=== PATIENT | male | born 1960 | race Caucasian/White ===

== ENCOUNTER → 2016-07-24 | Outpatient (CLI) | payer BC, OTHER ==
[~2016-07-24] MED LIST: ASPI-435 PO; HYG25 PO; LPT40 PO; OMEG10002 PO; TPRSR/25 PO
[2016-07-24 12:55] LABS: BLOOD UREA NITROGEN 18 mg/dl (7-18); BUN/CREATININE RATIO 18.4 (10-20); CALCIUM 9.4 mg/dl (8.5-10.1); CARBON DIOXIDE 26 mmol/L (21-32); CHLORIDE 103 mmol/L (98-107); CREATININE 0.98 mg/dl (0.60-1.40); GLUCOSE 93 mg/dl (70-99); POTASSIUM 3.8 mmol/L (3.5-5.1); SODIUM 138 mmol/L (136-145)
[2016-07-24 12:58] LABS: CHOLESTEROL/HDL RATIO 4.5
== END | disposition home or self-care (01) ==
LOC: C.LABPVFM 07:35
PROVIDERS: ATTEND Internal Medicine Cardiovascular Disease
DX: I10 Essential (primary) hypertension (principal); E78.5 Hyperlipidemia, unspecified

== ENCOUNTER → 2017-01-17 | Outpatient (CLI) | payer BC ==
[2017-01-17 13:34] LABS: BLOOD UREA NITROGEN 21 mg/dl (7-18); BUN/CREATININE RATIO 21.1 (10-20); CALCIUM 9.5 mg/dl (8.5-10.1); CARBON DIOXIDE 28 mmol/L (21-32); CHLORIDE 106 mmol/L (98-107); CHOLESTEROL 176 mg/dl (0-200); GLUCOSE 85 mg/dl (70-99); POTASSIUM 3.8 mmol/L (3.5-5.1); SODIUM 140 mmol/L (136-145)
[2017-01-17 13:37] LABS: CHOLESTEROL/HDL RATIO 4.2; HDL CHOLESTEROL 42 mg/dl; LDL CHOLESTEROL CALCULATED 112 mg/dl; TRIGLYCERIDES 112 mg/dl (0-150); VERY LOW DENSITY LIPOPROT CALC 22 mg/dl
== END | disposition home or self-care (01) ==
LOC: C.LABPVFM 08:24
PROVIDERS: ATTEND Nurse Practitioner
DX: E78.5 Hyperlipidemia, unspecified (principal); I10 Essential (primary) hypertension

== ENCOUNTER → 2017-09-03 | Outpatient (CLI) | payer BC | END | disposition home or self-care (01) | LOC: C.LABPVFM 07:50 | PROVIDERS: ATTEND Internal Medicine Cardiovascular Disease | DX: E78.5 Hyperlipidemia, unspecified (principal) ==

== ENCOUNTER 2021-01-19 16:15 | Observation (INO) ==
--- NOTE | 2021-01-19 16:38 | Emergency Department Note ---
History of Present Illness General Chief complaint: Infection, Wound Stated complaint: STICHES REMOVED ON LEFT LEG - WOUND IS INFECTED Time Seen by Provider: 01/19/21 16:27 Source: patient History of Present Illness Provider complaint: Leg pain Onset (ago): week(s) Location: lower extremity and left Pain Consistency: + constant Maximum Pain Intensity: 5 Quality: + other (Stinging) Relieved By: + none Associated symptoms: no chest pain, no cough, no fever/chills, no malaise, no nausea/vomiting and no shortness of breath This is a 61-year-old male who presents with pain to his left leg. He has had it since December 2 days after he fell and cut himself on a ladder. He states that the wound was repaired and the patient was on antibiotics for a week. Subsequently he had the sutures removed January 14 and was placed on 2 different antibiotics for a wound infection. He is presenting today because he is concerned that the antibiotics are not helping. He complains of a stinging pain to his left leg. No associated fever or vomiting or malaise. No alleviating factors. He has noticed that he developed little pustular lesions on the right leg as well as surrounding the wound. He has also noticed some yellowish and clear discharge from the wound itself. He does state that [place] the [place] and they presume the posterior lesions were from bug bites. He did scratch them initially. He denies any chest pain, shortness of breath, abdominal pain, diarrhea or urinary symptoms. Home Medications Medication Instructions Recorded Confirmed Type omega-3 fatty acids 1,000 mg 1,000 mg PO DAILY 02/02/19 01/19/21 History capsule azelastine 205.5 mcg (0.15 %) 2 sprays INTNAS BID PRN 02/19/19 01/19/21 History nasal spray aspirin 81 mg tablet,delayed 81 mg PO DAILY tab 02/23/19 01/19/21 History release ketoconazole 2 % topical cream 1 appln TOP BID #30 gm 06/24/19 01/19/21 Rx triamcinolone acetonide 0.1 % 1 appln TOP BID #30 gm 06/24/19 01/19/21 Rx topical cream metoprolol succinate 25 mg 12.5 mg PO DAILY #45 tab 04/10/20 01/19/21 Rx tablet,extended release 24 hr tadalafil 10 mg tablet 10 mg PO .COMPLEX PRN #5 tab 07/09/20 01/19/21 Rx escitalopram oxalate 20 mg tablet 20 mg PO DAILY #30 tab 08/28/20 01/19/21 Rx albuterol sulfate 90 mcg/actuation 2 inh INH Q6H PRN #18 gm 09/07/20 01/19/21 Rx aerosol inhaler amoxicillin 875 mg-potassium 1 tab PO BID #14 tab 01/14/21 01/19/21 Rx clavulanate 125 mg tablet sulfamethoxazole 800 1 tab PO BID #14 tab 01/14/21 01/19/21 Rx mg-trimethoprim 160 mg tablet atorvastatin 80 mg PO QPM 01/19/21 01/19/21 History chlorthalidone 25 mg PO QAM 01/19/21 01/19/21 History diclofenac sodium 50 mg PO BID 01/19/21 01/19/21 History trazodone 50 mg PO HS 01/19/21 01/19/21 History Allergies Allergy/AdvReac Type Severity Reaction Status Date / Time Pollen Allergy Intermediate SNEEZING, Uncoded 01/19/21 17:44 CONGESTION Past Med/Surg History Medical History (Updated 01/19/21 @ 19:54 by Jono Vallejo MD) Cervical radicular pain Cervical spine pain Coronary artery fistula Eczema Enlarged thyroid Surgical History H/O hernia repair H/O shoulder surgery Bilateral History of cataract surgery Family History Aunt Colorectal cancer Uncle Colorectal cancer Father Myocardial infarction Other Cancer Diabetes Stroke Denies family history of Ovarian cancer Prostate cancer Breast cancer Social History Smoking Status: Current every day smoker Tobacco Type: Cigarettes Age Started Using Tobacco: 11; packs per day: 1; Years Smoked: 48; Cigarettes Per Day: 20; Second Hand Exposure: Yes; Hx Alcohol Use: Yes Alcohol type: beer Hx Substance Use: No Preferred Language: Taiwanese Visual Impairment: No Limitations Hearing Ability: Normal marital status: Current Living Situation: Spouse current occupational status: retired Feels Safe at Home: Yes caffeine: Yes Dental Care, Regularly: No Physical Activity Frequency: Daily Seatbelt Use: sometimes Sunscreen Use: No Review of Systems See HPI for pertinent positives & negatives. and A total of 10 systems reviewed and were otherwise negative Physical Exam Vital Signs Vital Signs - 24 hr 01/19/21 16:22 01/19/21 19:25 Temperature 36.7 C 37.1 C Temperature Source Oral Oral Pulse Rate 88 Respiratory Rate 20 20 Respiratory Effort / Characteristics Non-Labored Non-Labored Spontaneous Respiratory Depth Normal Normal Respiratory Pattern Regular Blood Pressure 152/87 H Blood Pressure [Left Arm] 164/79 H Blood Pressure Mean 108 Blood Pressure Mean [Left Arm] 107 Blood Pressure Position [Left Arm] Lying Pulse Oximetry 96 98 Oxygen Delivery Method Room Air Room Air Sepsis Recent Fever Within 48 Hours No Sepsis New/Unexplained Change in Mental Status N/A Sepsis Action Taken by Nursing No Action Required Constitutional: Vital signs reviewed. Eyes: Pupils are equal round reactive to light. Conjunctiva are noninjected. ENT: Pharynx is clear without erythema or exudate. Mucous membranes are moist. Neck supple without meningeal signs. Respiratory: Clear to auscultation bilaterally. Breath sounds are equal bilaterally. Cardiovascular: Regular rate and rhythm. No rubs or gallops. GI: Soft, nondistended and nontender. Bowel sounds are present. Musculoskeletal: Large wound to the left medial calf with serous drainage along the margins. No purulence is noted. There is surrounding erythema extending approximately 2 to 3 cm around the wound. There is no palpable mass or fluctuance or induration. There are small papular lesions surrounding the wound as well as on the right calf that are excoriated. No crepitus to either leg. Integumentary: No cyanosis. or jaundice. Neurological: The patient is awake and alert. No focal deficits. Psychiatric: Normal affect. Not anxious appearing. Course Administered Medications Discontinued Medications Vancomycin HCl 2,500 mg/ (Sodium Chloride) 550 mls @ 200 mls/hr IV NOW ONE Stop: 01/19/21 19:46 Last Admin: 01/19/21 17:48 Dose: 200 mls/hr Documented by: [id number] Ceftriaxone Sodium (Rocephin) 2,000 mg in 70 mls @ 140 mls/hr IV NOW STA Stop: 01/19/21 17:31 Last Infusion: 01/19/21 17:42 Dose: 0 mls/hr Documented by: [id number] Admin: 01/19/21 17:12 Dose: 140 mls/hr Documented by: [id number] Medical Decision Making Differential Diagnosis Wound infection, cellulitis, MRSA, abscess, fasciitis Medical Records Attestation: I reviewed the patient's medical records. January 06 I did perform a limited focused review of portions of the patient's old chart on the electronic medical record. The patient had a laceration from a ladder on December 29. He was repaired in the emergency department and discharged with Keflex. On January 14 he presented to his doctor's office and his sutures were removed. They noticed that he had purulent discharge and cellulitis and so he was placed on Augmentin and Bactrim. A telephone consult 2 days later noted that he had dehiscence of his wound and he was advised to maintain local wound care. Home Medications Current Medication List: was personally reviewed by me Laboratory Data Attestation: I reviewed the patient's lab results. Result diagrams: 01/19/21 16:52 01/19/21 16:52 Lab Results 01/19/21 01/19/21 01/19/21 Range/Units 16:52 16:52 17:17 WBC 8.52 (4.8-10.8) K/uL RBC 5.12 (4.7-6.1) M/uL Hgb 15.3 (14.0-18.0) g/dL Hct 43.6 (42-52) % MCV 85.2 (80-100) fL MCH 29.9 (25-34) pg MCHC 35.1 (32-36) g/dL RDW Std Deviation 42.3 (36.4-46.3) fL RDW Coeff of Kyung 13.5 (11.5-14.5) % Plt Count 356 (130-400) K/uL MPV 8.2 (7.4-10.4) fL Immature Gran % (Auto) 0.1 % Neut % (Auto) 53.9 % Lymph % (Auto) 32.3 % Guthrie % (Auto) 10.1 % Eos % (Auto) 3.4 % Baso % (Auto) 0.2 % Neut # (Auto) 4.59 (1.4-6.5) K/uL Lymph # (Auto) 2.75 (1.2-3.4) K/uL Guthrie # (Auto) 0.86 H (0.11-0.59) K/uL Eos # (Auto) 0.29 (0-0.5) K/uL Baso # (Auto) 0.02 (0-0.2) K/uL Immature Gran # (Auto) 0.01 (0.00-0.02) K/uL Sodium 135 L (136-145) mmol/L Potassium 3.6 (3.5-5.1) mmol/L Chloride 102 (98-107) mmol/L Carbon Dioxide 30 (21-32) mmol/L Anion Gap 3.0 (3-11) BUN 10 (7-18) mg/dl Creatinine 0.99 (0.6-1.4) mg/dl Est Cr Clr Drug Dosing 92.6 ml/min Est GFR ( Amer) 93.6 ml/min Est GFR (Non-Af Amer) 80.7 ml/min BUN/Creatinine Ratio 10.3 (10-20) Glucose 107 H (70-99) mg/dl Calcium 8.8 (8.5-10.1) mg/dl COVID-19 Eval Order Covid19 at [facility] SARS-CoV-2 (PCR) (Negative) 01/19/21 Range/Units 17:17 WBC (4.8-10.8) K/uL RBC (4.7-6.1) M/uL Hgb (14.0-18.0) g/dL Hct (42-52) % MCV (80-100) fL MCH (25-34) pg MCHC (32-36) g/dL RDW Std Deviation (36.4-46.3) fL RDW Coeff of Kyung (11.5-14.5) % Plt Count (130-400) K/uL MPV (7.4-10.4) fL Immature Gran % (Auto) % Neut % (Auto) % Lymph % (Auto) % Guthrie % (Auto) % Eos % (Auto) % Baso % (Auto) % Neut # (Auto) (1.4-6.5) K/uL Lymph # (Auto) (1.2-3.4) K/uL Guthrie # (Auto) (0.11-0.59) K/uL Eos # (Auto) (0-0.5) K/uL Baso # (Auto) (0-0.2) K/uL Immature Gran # (Auto) (0.00-0.02) K/uL Sodium (136-145) mmol/L Potassium (3.5-5.1) mmol/L Chloride (98-107) mmol/L Carbon Dioxide (21-32) mmol/L Anion Gap (3-11) BUN (7-18) mg/dl Creatinine (0.6-1.4) mg/dl Est Cr Clr Drug Dosing ml/min Est GFR ( Amer) ml/min Est GFR (Non-Af Amer) ml/min BUN/Creatinine Ratio (10-20) Glucose (70-99) mg/dl Calcium (8.5-10.1) mg/dl COVID-19 Eval Order SARS-CoV-2 (PCR) NEGATIVE (Negative) MDM Narrative I did evaluate the patient as noted above. He is presenting with an infection to a wound from December 29. He was on a course of Keflex after obtaining the wound and then placed on Augmentin and Bactrim for the past 5 days. He has had worsening of his wound while on antibiotics. He denies any systemic symptoms and has no evidence of sepsis at this time. There is no evidence of fasciitis at this time. IV access was established. I did order blood cultures. After discussion with the pharmacist I did treat the patient with IV Rocephin and IV vancomycin. I did order and review the patient's blood work as noted in the electronic medical record. His white blood cell count is not elevated. He is not anemic. Platelet count is within normal limits. Electrolytes demonstrate a mild hyponatremia with a sodium of 135. I did discuss the test results with the patient. Covid screening testing is negative. He will be hospitalized for IV antibiotics and further evaluation. Impression & Plan Cellulitis of left leg, Failure of outpatient treatment Discharge Plan Visit Data Chief Complaint: Infection, Wound Stated Complaint: STICHES REMOVED ON LEFT LEG - WOUND IS INFECTED ED Provider: Jono Vallejo Discharge Problem: Cellulitis of left leg, Failure of outpatient treatment Patient Disposition: Being Evaluated by Hospitalist Forms Stand Alone Forms: My [facility] Prescriptions Prescriptions: No Action metoprolol succinate 25 mg tablet extended release 24 hr 12.5 mg PO DAILY Qty: 45 RF: 3 tadalafil [Cialis] 10 mg tablet 10 mg PO .COMPLEX PRN (Reason: sexual activity) Qty: 5 RF: 11 albuterol sulfate [Ventolin HFA] 90 mcg/actuation HFA aerosol inhaler 2 inh INH Q6H PRN (Reason: wheezing) Qty: 18 RF: 3 triamcinolone acetonide 0.1 % cream 1 appln TOP BID Qty: 30 RF: 3 ketoconazole 2 % cream 1 appln TOP BID Qty: 30 RF: 3 escitalopram oxalate [Lexapro] 20 mg tablet 20 mg PO DAILY Qty: 30 RF: 6 omega-3 fatty acids [Fish Oil Concentrate] 1,000 mg capsule 1,000 mg PO DAILY RF: 0 azelastine 0.15 % (205.5 mcg) spray,non-aerosol 2 sprays INTNAS BID PRN (Reason: Congestion) RF: 0 aspirin 81 mg tablet,delayed release (DR/EC) 81 mg PO DAILY RF: 0 amoxicillin-pot clavulanate [Augmentin] 875-125 mg tablet 1 tab PO BID Qty: 14 RF: 0 sulfamethoxazole-trimethoprim [Bactrim DS] 800-160 mg tablet 1 tab PO BID Qty: 14 RF: 0 atorvastatin 80 mg tablet 80 mg PO QPM RF: 0 trazodone 50 mg tablet 50 mg PO HS RF: 0 chlorthalidone 25 mg tablet 25 mg PO QAM RF: 0 diclofenac sodium 50 mg tablet,delayed release (DR/EC) 50 mg PO BID RF: 0 Referrals Referrals: Sariah Carey CRNP [Primary Care Provider] -
[2021-01-19] MEDS ORDERED: VANCOMYCIN HCL 2,500 MG in SODIUM CHLORIDE 0.9% 500 ML IV ONE (17:02)
[2021-01-19] MEDS ORDERED: VANCOMYCIN CONSULT ACTIVE PRN ×3 (17:02→21:36)
[2021-01-19] MEDS ORDERED: cefTRIAXone SODIUM 2,000 MG/70 ML BAG IV STA (17:02)
[2021-01-19 17:12] LABS: Basophils # (auto) 0.02 K/uL (0-0.2); Basophils % (auto) 0.2 %; Eosinophils # (auto) 0.29 K/uL (0-0.5); Eosinophils % (auto) 3.4 %; Hematocrit (blood only) 43.6 % (42-52); Hemoglobin 15.3 g/dL (14.0-18.0); Immature Granulocytes # (auto) 0.01 K/uL (0.00-0.02); Immature Granulocytes % (auto) 0.1 %; Lymphocytes # (auto) 2.75 K/uL (1.2-3.4); Lymphocytes % (auto) 32.3 %; Mean Corpuscular Hemoglobin 29.9 pg (25-34); Mean Corpuscular Hgb Conc 35.1 g/dL (32-36); Mean Corpuscular Volume 85.2 fL (80-100); Mean Platelet Volume 8.2 fL (7.4-10.4); Monocytes # (auto) 0.86 K/uL (0.11-0.59); Monocytes % (auto) 10.1 %; Neutrophils # (auto) 4.59 K/uL (1.4-6.5); Neutrophils % (auto) 53.9 %; Platelet Count 356 K/uL (130-400); RDW Coefficient of Variation 13.5 % (11.5-14.5); RDW Standard Deviation 42.3 fL (36.4-46.3); Red Blood Count 5.12 M/uL (4.7-6.1); White Blood Count 8.52 K/uL (4.8-10.8)
[2021-01-19 17:28] LABS: BUN Creatinine Ratio 10.3 (10-20); Calcium 8.8 mg/dl (8.5-10.1); Creatinine Clr Calc Pharmacy 92.6 ml/min; Est GFR (African American) 93.6 ml/min; Est GFR (Non-African American) 80.7 ml/min; Potassium 3.6 mmol/L (3.5-5.1)
--- NOTE | 2021-01-19 18:49 | History & Physical Report ---
Date of Service January 19, 2021 Assessment & Plan (1) Wound dehiscence: Left calf as per Physical exam - wet to dry bid to lightly debrided the sloughing tissue - no drainage or fluctuance palpated or expressed - Continue Vancomycin (2) Dermatitis: Surrounding wound edges with beefy red appearance and demarcated borders- noninfectious looking - likely related to the cream he was using and wrapping - will place betamethasone to pustules and not on open wound (3) Hypertension: Controlled - Continue Chlorthalidone - Continue Metoprolol (4) Hyperlipidemia: Continue Atorvastatin Continue omega 3 (5) CAD (coronary artery disease): Non-obstructive CAD 20% mid LAD, RCA to LCx fistula, 2006). Continue ASA, BB, Lipids (6) Anxiety: Continue his escitalopram for anxiety and continue his trazodone for insomnia History of Present Illness Primary Care Provider: LETICIA Caceres 61 YOM with past medical history of CAD, HLD, HTN, eczema. Patient was originally seen on 12/29/20 for left calf laceration. The laceration was a result of being pulled down 2 rungs of ladder while removing old decking boards. While he was falling down his calf was lacerated by a nail. Per review there was a moderate amount of dirt and debris in the wound. The wound was cleaned with Betadine and irrigated and forcep debridement and was primarily closed with 4-0 nylon sutures. The patient was then started on Keflex and received a TDAP booster. Patient reports that he was doing well and followed up with his PCP on with noted cellulitis around the wound, and was reported as having purulent drainage, the sutures were removed at that time and wound edges by report remained closed. He was then placed on Augmentin 875-125 and Bactrim DS 800-160. The patient then had a "wound blow out" on and called his PCP where antibiotics were continued and use of Neosporin or Vaseline gauze and wrap the incision was recommended. The patient said he was putting a cream called "Shivani" ? on it. Patient comes in today for continued erythema with wound edge excoriation, sloughing of tissue and surrounding papules that are tracking up his left leg and end behind the knee as well as on his right leg. These papules are itchy at time and are consistent with where his left and right calves would touch. They are not itchy and not draining. He denies any use of tape or other dressing other than Neosporin and gauze dressing. He was started on Rocephin and Vancomycin here in the [facility] and the hospitalist service was consulted for admission. The patient is not toxic appearing, surrounding tissue is now warm or painful, WBC are NOT elevated and systemically the patient states he feels well. Blood cultures were already drawn. Patient will be observed overnight, continue Vancomycin. Allergies Allergy/AdvReac Type Severity Reaction Status Date / Time Pollen Allergy Intermediate SNEEZING, Uncoded 01/19/21 17:44 CONGESTION Home Medications Medication Instructions Recorded Confirmed Type omega-3 fatty acids 1,000 mg 1,000 mg PO DAILY 02/02/19 01/19/21 History capsule azelastine 205.5 mcg (0.15 %) 2 sprays INTNAS BID PRN 02/19/19 01/19/21 History nasal spray aspirin 81 mg tablet,delayed 81 mg PO DAILY tab 02/23/19 01/19/21 History release ketoconazole 2 % topical cream 1 appln TOP BID #30 gm 06/24/19 01/19/21 Rx triamcinolone acetonide 0.1 % 1 appln TOP BID #30 gm 06/24/19 01/19/21 Rx topical cream metoprolol succinate 25 mg 12.5 mg PO DAILY #45 tab 04/10/20 01/19/21 Rx tablet,extended release 24 hr tadalafil 10 mg tablet 10 mg PO .COMPLEX PRN #5 tab 07/09/20 01/19/21 Rx escitalopram oxalate 20 mg tablet 20 mg PO DAILY #30 tab 08/28/20 01/19/21 Rx albuterol sulfate 90 mcg/actuation 2 inh INH Q6H PRN #18 gm 09/07/20 01/19/21 Rx aerosol inhaler amoxicillin 875 mg-potassium 1 tab PO BID #14 tab 01/14/21 01/19/21 Rx clavulanate 125 mg tablet sulfamethoxazole 800 1 tab PO BID #14 tab 01/14/21 01/19/21 Rx mg-trimethoprim 160 mg tablet atorvastatin 80 mg PO QPM 01/19/21 01/19/21 History chlorthalidone 25 mg PO QAM 01/19/21 01/19/21 History diclofenac sodium 50 mg PO BID 01/19/21 01/19/21 History trazodone 50 mg PO HS 01/19/21 01/19/21 History Past Med/Surg History Medical History (Updated 01/19/21 @ 19:54 by Jono Vallejo MD) Cervical radicular pain Cervical spine pain Coronary artery fistula Eczema Enlarged thyroid Surgical History H/O hernia repair H/O shoulder surgery Bilateral History of cataract surgery Family History Aunt Colorectal cancer Uncle Colorectal cancer Father Myocardial infarction Other Cancer Diabetes Stroke Denies family history of Ovarian cancer Prostate cancer Breast cancer Social History Smoking Status: Current every day smoker Tobacco Type: Cigarettes Age Started Using Tobacco: 11; packs per day: 1; Years Smoked: 48; Cigarettes Per Day: 1; Second Hand Exposure: Yes; Do You Dip or Chew Tobacco: No; Hx Alcohol Use: Yes Alcohol type: beer Hx Substance Use: No Preferred Language: Tamazight Communication Ability: Effective Visual Impairment: No Limitations Hearing Ability: Normal Lab Systems Analyst Required: No Beliefs That Will Affect Care: None marital status: Current Living Situation: Spouse current occupational status: retired Other Information That Helps Us Care for You: No Feels Safe at Home: Yes Safety Concerns: Feels Safe At This Time caffeine: Yes Dental Care, Regularly: No Physical Activity Frequency: Daily Seatbelt Use: sometimes Sunscreen Use: No Assistive Devices: None Review of Systems Review of Systems: REVIEW OF SYSTEMS: Constitutional: No fever, sweats or chills Eyes: No diplopia, no worsening or blurred vision ENT: normal hearing, no trouble swallowing Respiratory: No cough, sputum, dyspnea at rest or on exertion Cardiovascular: No chest pain, tightness or palpitations Abdomen: No pain, nausea, vomiting, diarrhea or constipation Musculoskeletal: No joint pain, calf pain, swelling Neurologic: No weakness, numbness/tingling, or balance problems Psychiatric: No anxiety or depression Skin: (+) redness, excoriation, rash on bilateral legs Physical Exam Physical Exam: PHYSICAL EXAM: General: awake, alert, no apparent distress Head: Normocephalic, atraumatic ENT: PERRL, EOMI, no pharyngeal exudate, mucous membranes moist Neuro: AAO x 3, speech clear and appropriate, strength intact bilaterally 5/5, sensation intact and equal all extremities and dermatomes, no pronator drift Chest: equal rise and fall of the chest, no accessory muscle use, no heaves or thrills, Clear to auscultation, on room air, Cardiac: Regular rate and rhythm, telemetry reviewed, skin warm dry, cap refill <3 seconds, peripheral pulses +2 no JVD, no murmur, no JVD, no edema GI: NABS x 4 quadrants, soft, nontender to palpation, no rebound, guarding or tenderness : Spontaneously voiding, no pain, no CVA tenderness, Extremities: Normal inspection, no peripheral edema or erythema, calfs nontender to palpation Psych: Normal mood and affect Skin: Left calf with wound edges that are with eschar and some mild tissue sloughing, the surrounding tissue is excoriated appearing with red shiny non raised appearance and clean borders, the papules are not draining and mild erythema around all of them. No lymphadenopathy. Results & Data Results & Data ([facility]) Vital Signs (Past 12 Hours) Vital Signs Temp Pulse Resp BP Pulse Ox 01/19/21 16:22 36.7 C 88 20 152/87 H 96 Laboratory Results Abnormal Labs 01/19/21 01/19/21 16:52 16:52 Walsh # (Auto) 0.86 H Sodium 135 L Glucose 107 H Medications Administered Vancomycin HCl 2,500 mg/ (Sodium Chloride) 550 mls @ 200 mls/hr IV NOW ONE Stop: 01/19/21 19:46 Last Admin: 01/19/21 17:48 Dose: 200 mls/hr Documented by: [id number] Discontinued Medications Ceftriaxone Sodium (Rocephin) 2,000 mg in 70 mls @ 140 mls/hr IV NOW STA Stop: 01/19/21 17:31 Last Infusion: 01/19/21 17:42 Dose: 0 mls/hr Documented by: [id number] Admin: 01/19/21 17:12 Dose: 140 mls/hr Documented by: [id number] Code Status & VTE Plan Code Status CODE: FULL VTE: Lovenox and ambulation. SCD's waived secondary to wound/dermatitis VTE Prophylaxis Plan VTE Prophylaxis will be ordered: Yes Supervising Physician Co-Signing Physician Notes ANALYTIC PROGRAMMER Supervision note: I have personally seen and examined the patient and discussed and verified the jhaveri points of the history and physical along with the plan with LETICIA Leslie with the following exceptions and/or additions: Pt here with worsening rash and itching around an open left leg wound as well as rash on right leg s/p recent laceration and wound dehiscence last week. He has been on Augmentin and Bactrim since 01/14 and had sutures removed at that time. Has been using topical Neosporin and Clementina cream OTC. He then noted rash on right leg as well. Has excoriated the vesicles of rash on right leg and left leg. Denies fevers/chills, no headaches, no CP or SOB, no nausea or abd pain, no diarrhea, no trouble with urinating. History and ROS reviewed as above Vitals reviewed NAD, AAOx3,non toxic appearing RRR no mgr CTAB no wcr Abd soft NT ND no masses Ext 1+ nonpitting edema left ankle and distal leg Skin: left medial calf with 5 cm x 1 cm wound with yellow eschar, surrounding sloughed off skin and erythema, no exudate, +serous drainage, also with scattered surrounding excoriated 2mm vesicles up left thigh and behind left knee; similar excoriated patch of multiple vesicles right medial calf, no spreading erythema, no warmth, mild induration directly around left calf wound. No rash on hands or feet or anywhere else on body 61 yo male here with likely irritant contact dermatitis with id reaction to right leg -apply topical betamethasone to rash except in open wound on left leg continue Vanco for now, no wound culture to follow from previous. BCxs drawn here but doubtful he has bacteremia as he does not have sepsis and looks well. local wound care PG Care Time/CCT Total # of Minutes Spent Total Time Spent with Patient: Total time spent is greater than 50% in coordination of care (as documented) at patient's floor/unit and/or counseling patient: Coding Level of Care Code 30375 OBS Care - Level 3 Diagnoses Wound dehiscence T81.30XA Dermatitis L30.9 Hypertension I10 Hypertension type: unspecified Hyperlipidemia E78.5 Hyperlipidemia type: unspecified CAD (coronary artery disease) I25.10 Associated angina: unspecified whether angina present Coronary Disease-Associated Artery/Lesion type: unspecified vessel or lesion type [place] vs. transplanted heart: unspecified whether [place] or transplanted heart Anxiety F41.9 (1) CAD (coronary artery disease) Associated angina: unspecified whether angina present Coronary Disease-A ssociated Artery/Lesion type: unspecified vessel or lesion type [place] vs. transplanted heart: unspecified whether [place] or transplanted heart Qualified Code(s): I25.10 - Atherosclerotic heart disease of [place] coronary artery without angina pectoris (2) Hyperlipidemia Hyperlipidemia type: unspecified Qualified Code(s): E78.5 - Hyperlipidemia, unspecified (3) Hypertension Hypertension type: unspecified Qualified Code(s): I10 - Essential (primary) hypertension
[2021-01-19] MEDS ORDERED: ATORVASTATIN 40 MG TAB PO SCH (21:36)
[2021-01-19] MEDS ORDERED: ALBUTEROL HFA 8 GM INHALER INH PRN (21:36)
[2021-01-19] MEDS ORDERED: traZODone HCL 50 MG TAB PO SCH (21:36)
[2021-01-19] MEDS ORDERED: ACETAMINOPHEN 325 MG TAB PO PRN (21:36)
[2021-01-19] MEDS ORDERED: ENOXAPARIN INJ 40 MG/0.4 ML SYR SQ SCH (22:00)
[2021-01-19] MEDS: BETAMETHASONE VAL 0.1% OINT 15 GM TUBE EXT SCH (22:34)
[2021-01-20] MEDS ORDERED: VANCOMYCIN HCL 1,250 MG in SODIUM CHLORIDE 0.9% 250 ML IV SCH ×2 (02:00→13:00)
[2021-01-20 07:34] LABS: Creatinine Clr Calc Pharmacy 91.7 ml/min; Est GFR (African American) 92.4 ml/min; Est GFR (Non-African American) 79.7 ml/min
[2021-01-20] MEDS: BETAMETHASONE VAL 0.1% OINT 15 GM TUBE EXT SCH (08:42)
[2021-01-20] MEDS ORDERED: OMEGA-3 (PURIFIED FISH OIL) 1 GM CAP PO SCH (09:00)
[2021-01-20] MEDS ORDERED: DICLOFENAC SODIUM 25 MG TABDR PO SCH (09:00)
[2021-01-20] MEDS ORDERED: METOPROLOL SUCC 25MG EXT REL TAB PO SCH (09:00)
[2021-01-20] MEDS ORDERED: CHLORTHALIDONE 25 MG TAB PO SCH (09:00)
[2021-01-20] MEDS ORDERED: ESCITALOPRAM OXALATE 20 MG TAB PO SCH (09:00)
[2021-01-20] MEDS ORDERED: ASPIRIN 81 MG ECTAB PO SCH (09:00)
--- NOTE | 2021-01-20 09:26 | Pharmacy Report ---
Pharmacy Abx Initial Consult - Date of Service January 20, 2021 - Pharmacy Dosing Scope Date of Consult: 01/19/21 Consultation requested by: Dr. Leslie Pharmacy is consulted to initiate IV vancomycin dosing therapy, order appropriate labs and adjust drug dose/frequency. - Subjective The patient is a 61 year old M admitted on 01/19/21 19:14. - Objective Height: 6 ft Weight: 98 kg Vital Signs (Past 12hrs): Vital Signs Temp Pulse Resp BP Pulse Ox 01/20/21 07:27 36.4 C L 65 18 135/84 95 01/19/21 21:39 36.6 C 61 18 129/81 96 Lab Results (24hrs): Laboratory Tests (24 Hours) 01/20/21 01/19/21 01/19/21 06:51 16:52 16:52 WBC 8.52 Neut # (Auto) 4.59 Creatinine 1.00 0.99 Est Cr Clr Drug Dosing 91.7 92.6 Micro Results: 01/19/21 16:56 Aerobic Blood Culture - Pending Blood Anaerobic Blood Culture - Pending 01/19/21 16:52 Aerobic Blood Culture - Pending Blood Anaerobic Blood Culture - Pending - Risk Factors for Resistance * Antimicrobial use within the last 90 days [Augmentin, Keflex, Bactrim] - Assessment & Plan Assessment 61 year old M initiated on IV vancomycin therapy due to worsening of a left calf wound. Pt was seen in December for a left calf laceration (fall from a ladder- calf lac by a nail) that was debrided and treated with cephalexin, Augmentin, and Bactrim on several visits due to purulent drainage, and cellulitis that recurred. Now presents with continued erythema, wound edge excoriation, sloughing of tissue and tracking. Plan Vancomycin IV * Loading dose: 2500 mg (~25 mg/kg) * Maintenance dose: 1250 mg IV (~13 mg/kg) every 12 hours * dose adjusted this AM due to likelihood for accumulation on q8h and indication * Goal trough level for cellulitis: 10-15 mcg/mL * Trough/Random level ordered for 01/21 Pharmacy will continue to follow and will adjust dose/frequency as necessary. Thank you.
--- NOTE | 2021-01-20 11:40 | Discharge Summary ---
Date of Service January 20, 2021 Admission HPI Per Admitting Provider 61 YOM with past medical history of CAD, HLD, HTN, eczema. Patient was originally seen on 12/29/20 for left calf laceration. The laceration was a result of being pulled down 2 rungs of ladder while removing old decking boards. While he was falling down his calf was lacerated by a nail. Per review there was a moderate amount of dirt and debris in the wound. The wound was cleaned with Betadine and irrigated and forcep debridement and was primarily closed with 4-0 nylon sutures. The patient was then started on Keflex and received a TDAP booster. Patient reports that he was doing well and followed up with his PCP on with noted cellulitis around the wound, and was reported as having purulent drainage, the sutures were removed at that time and wound edges by report remained closed. He was then placed on Augmentin 875-125 and Bactrim DS 800-160. The patient then had a "wound blow out" on and called his PCP where antibiotics were continued and use of Neosporin or Vaseline gauze and wrap the incision was recommended. The patient said he was putting a cream called "Shivani" ? on it. Patient comes in today for continued erythema with wound edge excoriation, sloughing of tissue and surrounding papules that are tracking up his left leg and end behind the knee as well as on his right leg. These papules are itchy at time and are consistent with where his left and right calves would touch. They are not itchy and not draining. He denies any use of tape or other dressing other than Neosporin and gauze dressing. He was started on Rocephin and Vancomycin here in the [facility] and the hospitalist service was consulted for admission. The patient is not toxic appearing, surrounding tissue is now warm or painful, WBC are NOT elevated and systemically the patient states he feels well. Blood cultures were already drawn. Patient will be observed overnight, continue Vancomycin. Principal Diagnosis Left leg cellulitis, Irritant contact dermatitis with id reaction bilateral legs Discharge Exam Vitals reviewed NAD, AAOx3,non toxic appearing RRR no mgr CTAB no wcr Abd soft NT ND no masses Ext trace+ nonpitting edema left ankle and distal leg, improved from previous Skin: left medial calf with 5 cm x 1 cm wound with yellow eschar, surrounding sloughed off skin and erythema, no exudate, no drainage, also with scattered surrounding excoriated 2mm vesicles up left thigh and behind left knee; similar excoriated patch of multiple vesicles right medial calf, no spreading erythema, no warmth, mild induration directly around left calf wound. No rash on hands or feet or anywhere else on body overall wound and rash appear slightly less erythematous today and edema left leg much improved with elevation of leg all night Discharge Data Allergies Allergy/AdvReac Type Severity Reaction Status Date / Time Pollen Allergy Intermediate SNEEZING, Uncoded 01/19/21 17:44 CONGESTION Consultations 01/19/21 17:55 ED Decision to Admit Stat Hospital Course (1) Wound dehiscence: Left calf with surrounding cellulitis--> now much improved - continue wet to dry bid to lightly debrided the sloughing tissue - no drainage or fluctuance palpated or expressed - received Vancomycin x 2 doses here -not septic, no spreading erythema most of appearance of wound that is abnormal is secondary to irritant contact dermatitis as below now improving with elevation, less edema -continue Bactrim DS alone x 7 more days which covers for Staph and Strep as no cultures available blood cultures drawn here but NGTD and do not suspect there will be (2) Dermatitis: Surrounding wound edges with beefy red appearance and demarcated borders- noninfectious looking - likely related to the cream he was using and wrapping--> irritant contact dermatitis--> also with id reaction to right leg or perhaps direct contact of cream to right leg from left leg with reaction - will place betamethasone to rash bid and not on open wound -has appt with DERM on Thursday which he will keep (3) Hypertension: Controlled - Continue Chlorthalidone - Continue Metoprolol (4) Hyperlipidemia: Continue Atorvastatin Continue omega 3 (5) CAD (coronary artery disease): Non-obstructive CAD 20% mid LAD, RCA to LCx fistula, 2006). Continue ASA, BB, Lipids (6) Anxiety: Continue his escitalopram for anxiety and continue his trazodone for insomnia Dispo-stable for dc to home Total Time Total Time Spent Total Time Spent (In Minutes): 35 min Total Time Includes: Examination of the Patient, Discharge Planning and Medication Reconciliation Discharge Plan Discharge Items Patient Disposition: Home - Self-Care Reason For Visit: CELLULITIS Discharge Diagnosis: Left leg wound with cellulitis, Right and left leg irritant contact dermatitis with id reaction Condition on Discharge: Good Activity: Resume your previous activity Activity Comment: Elevate left leg when sitting above level of heart Bathing Comment: Pat wound dry after shower Non-emergency contact: Primary Care Provider Call non-emergency contact if: you have any medication questions and your symptoms worsen Follow-up/Referrals: Sariah Carey CRNP [Primary Care Provider] - (Follow up within 1-2 weeks ) Diet: Heart Healthy Addtl Attending Provider Instructions: Continue the betamethasone ointment to the area of rash on BOTH legs EXCEPT do NOT apply to the open portion of the wound. You can continue the wet gauze with saline to the open wound with dry kerlix dressing to keep in place. Change daily or as needed for drainage. Do this for the next 3 days, then transition to dry dressing to keep wound covered until skin healed over. Keep your follow up appointment with Dermatology as scheduled for this coming week. Continue on Bactrim DS one tablet twice daily x 7 days. Pending Studies at Discharge: Yes Stand-Alone Forms: My [facility] Medications and DC Order Prescriptions: New betamethasone valerate 0.1 % Ointment 1 applic EXT BID 7 Days Qty: 15 RF: 0 Continued metoprolol succinate 25 mg tablet extended release 24 hr 12.5 mg PO DAILY Qty: 45 RF: 3 tadalafil [Cialis] 10 mg tablet 10 mg PO .COMPLEX PRN (Reason: sexual activity) Qty: 5 RF: 11 albuterol sulfate [Ventolin HFA] 90 mcg/actuation HFA aerosol inhaler 2 inh INH Q6H PRN (Reason: wheezing) Qty: 18 RF: 3 ketoconazole 2 % cream 1 appln TOP BID Qty: 30 RF: 3 escitalopram oxalate [Lexapro] 20 mg tablet 20 mg PO DAILY Qty: 30 RF: 6 omega-3 fatty acids [Fish Oil Concentrate] 1,000 mg capsule 1,000 mg PO DAILY RF: 0 azelastine 0.15 % (205.5 mcg) spray,non-aerosol 2 sprays INTNAS BID PRN (Reason: Congestion) RF: 0 aspirin 81 mg tablet,delayed release (DR/EC) 81 mg PO DAILY RF: 0 atorvastatin 80 mg tablet 80 mg PO QPM RF: 0 trazodone 50 mg tablet 50 mg PO HS RF: 0 chlorthalidone 25 mg tablet 25 mg PO QAM RF: 0 diclofenac sodium 50 mg tablet,delayed release (DR/EC) 50 mg PO BID RF: 0 sulfamethoxazole-trimethoprim [Bactrim DS] 800-160 mg tablet 1 tab PO BID Qty: 14 RF: 0 Discontinued triamcinolone acetonide 0.1 % cream 1 appln TOP BID Qty: 30 RF: 3 amoxicillin-pot clavulanate [Augmentin] 875-125 mg tablet 1 tab PO BID Qty: 14 RF: 0 Discharge Orders: Discharge Order (Routine); Ordered 01/20/21 Ordered By: Luna Bolton Admission Data Admit Date/Time: 01/19/21 19:14 Attending Provider: Luna Bolton Admit Provider: Yohan Leslie Primary Care Provider: Sariah Carey Other Providers: Jono De Leon Coding Level of Care Code 27871 OBS Care - Discharge Diagnoses Wound dehiscence T81.30XA Dermatitis L30.9 Hypertension I10 Hypertension type: unspecified Hyperlipidemia E78.5 Hyperlipidemia type: unspecified CAD (coronary artery disease) I25.10 Coronary Disease-Associated Artery/Lesion type: unspecified vessel or lesion type [place] vs. transplanted heart: unspecified whether [place] or transplanted heart Associated angina: unspecified whether angina present Anxiety F41.9
[2021-01-20] MEDS ORDERED: BETAMETHASONE VAL 0.1% CR 15 GM EXT SCH (12:00)
[2021-01-21] MEDS ORDERED: VANCOMYCIN TROUGH ONE (12:30)
== END 2021-01-20 13:59 | disposition home or self-care (01) ==
LOC: ED 16:15 → 3N 19:14 → INTOOBSV 19:14 → 3N 20:59
DX: Z20.822 Contact with and (suspected) exposure to COVID-19; Z79.899 Other long term (current) drug therapy; L30.9 Dermatitis, unspecified; F17.210 Nicotine dependence, cigarettes, uncomplicated; S81.802A Unspecified open wound, left lower leg, initial encounter; L03.116 Cellulitis of left lower limb; Z79.82 Long term (current) use of aspirin; I10 Essential (primary) hypertension; W11.XXXA Fall on and from ladder, initial encounter; I25.10 Atherosclerotic heart disease of native coronary artery without angina pectoris; E78.5 Hyperlipidemia, unspecified; W45.0XXA Nail entering through skin, initial encounter